=== PATIENT | male | born 1950 | race Two or more races ===

== ENCOUNTER 2025-08-08 06:48 | Outpatient (OUT) | payer MEDICARE, BC, SELFPAY ==
--- NOTE | 2025-08-08 | NM_ITS ---
Patient Name: KYLAH VELASQUEZ MR#: [id number] : 1950 Exam Date: 08/08/2025 Ordering Doctor: DR TK MAYERS . RADIOLOGY REPORT PROCEDURE: NM LILIA PERF SPECT REST STR COMPARISON: None. INDICATIONS: CHEST PAIN, SHORTNESS OF BREATH EXERTION TECHNIQUE: Exam Description: Stress/Rest one day protocol gated SPECT Rest Imagin.8 mCi Tc-99m Cardiolite IV on 08/08/2025 Stress Imaging 31.9 mCi Tc-99m Cardiolite IV on 08/08/2025 Exercise Protocol: Bennie Heart Rate (bpm): Rest: 51 Max: 133 PMHR: 91 Blood Pressure: Rest: 138/76 Max: 188/98 Exercise Time: Minutes: 4 Seconds: 57 Stage Reached: Stage: 2 Mets 7.0 Symptoms: Rest and peak stress ECG findings were pending and the exercise portion of the study was pending per attending physician [facility] . For more details please see separate cardiac stress test report. FINDINGS: Normal Perfusion study QUALITY OF STUDY: Good PERFUSION DEFECT: None LOCATION: SIZE: SEVERITY: TYPE: WALL MOTION: Normal LV SIZE: 79 mL. TID / TCD: 0.7 LVEF: Calculated EF 74%. SUMMARY: Normal Myocardial perfusion imaging study CONCLUSION: -No ischemia is noted in myocardial perfusion stress study. -Normal myocardial perfusion study. -Normal global left ventricular function -No transient ischemic dilatation. -ECG Stress will be reported separately Dictated by: Santana Zhao MD on 08/08/2025 at 18:51 Approved by: Santana Zhao MD on 08/08/2025 at 18:53
--- OUTSIDE RECORDS SUMMARY | 2025-08-08 06:53 | XMS_ITS | Encounter Summary ---
Author Organization [employer] Address [facility] [place]-[id number] [address] [place] [address] Care Team Providers Care Cutting Machine Offbearer Name Role Phone Jack Riley MD Primary Care Provider [phone] Encounter Details Date Type Department Care Team (Latest Contact Info) Description 08/04/2025 Travel Social History Tobacco Use Types Packs/Day Years Used Date Smoking Tobacco: Never Smokeless Tobacco: Never Alcohol Use Standard Drinks/Week Comments No 0 (1 standard drink = 0.6 oz pur e alcohol) AUDIT-C Answer Date Recorded Frequency of Alcohol Consumption Never 12/18/2018 Average Number of Drinks Not on file 019 Frequency of Binge Drinking Not on file 11/28 Childcare Answer Date Recorded Childcare Unknown 04/01/2019 Employment Answer Date Recorded Employment Unknown 04/01/2019 Purpose - Life Answer Date Recorded Purpose and direction in life Unknown Sex and Gender Information Value Date Recorded Sex Assigned at Not on file Legal Sex Male 11:33 AM EDT Gender Identity Not on file Sexual Orientation Not on file documented as of this encounter Plan of Treatment Upcoming Encounters Date Type Department Care Team (Late st Contact Info) Description 10/17/2025 3:00 PM EST Office Visit [facility] [address] [place] [address] [place] [address] Ganesh Reynoso MD [address] [place], [place] [id number] documented as of this encounter Visit Diagnoses Not on filedocumented in this encounter Care Teams Cutting Machine Offbearer Relationship Specialty Start Date End Date Jack Riley MD PCP - General 08/22/17 documented as of this encounter
--- OUTSIDE RECORDS SUMMARY | 2025-08-08 06:53 | XMS_ITS | Encounter Summary ---
Author Organization [employer] Address [facility] [place]-[id number] [address] [place] [address] Care Team Providers Care Black Top Spreader Machine Operator Name Role Phone Jack Riley MD Primary Care Provider [phone] Encounter Details Date Type Department Care Team (Late st Contact Info) Description 08/03/2025 Telephone [facility] [address] [place] [address] Kathryn Wilhelm, TEST CARRIER-GRADER GREEN MEAT [address] [place] [address] Social History Tobacco Use Types Packs/Day Years [...] on file documented as of this encounter Miscellaneous Notes * Telephone Encounter - Maria D Brizuela - 08/03/2025 9:21 AM EDT Called Amrit regarding the screening colonoscopy referral that our office received from Dr Riley, was unable to leave a message for him to call the office back to schedule an appointment as the mailbox is full. ALSO: 5 YEAR RECALL, LAST COLONOSCOPY 03/28/2021 documented in this encounter Plan of Treatment Upcoming Encounters Date Type Department Care Team (Late st Contact Info) Description 10/17/2025 3:00 PM EST Office Visit [facility] [address] [place] [address] [facility] [place] [address] Ganesh Reynoso MD [address] [place] [id number] documented as of this encounter Visit Diagnoses Not on filedocumented in this encounter Care Teams Black Top Spreader Machine Operator Relationship Specialty Start Date End Date Jack Riley MD PCP - General 08/22/17 documented as of this encounter
--- OUTSIDE RECORDS SUMMARY | 2025-08-08 06:53 | XMS_ITS | Clinical Summary ---
Author Organization [employer] [facility] Address [facility] [place]-[id number] [address] [place] [address] Care Team Providers Care Custom Leather Products Maker Name Role Phone Jack Riley MD Primary Care Provider [phone] Allergies No known active allergies Medications * This document contains information received from the source organization and may not represent a complete record from that organization. ibuprofen (ADVIL,MOTRIN) 800 mg tablet Take 800 mg by mouth every 6 (six) hours as needed for pain. Active Active Problems No known active problems Encounters Date Type Department Care Team Description 08/04/2025 Travel 08/03/2025 [facility] [address] [place] [phone] Kathryn Wilhelm, ELECTRIC MOTOR REBUILDER-CARBONATION TESTER from Last 3 Months Family History Medical History Relation Name Comments Diabetes Father Heart disease Father Diabetes Mother Relation Name Status Comments Brother Alive Daughter Alive Father Mother Sister Alive Son Alive Social History Tobacco Use Types Packs/Day Years [...] Recorded Purpose and direction in life Unknown 01 / Sex and Gender Information Value Date Recorded Sex Assigned at Not on file Legal Sex Male 11:33 AM EDT Gender Identity Not on file Sexual Orientation Not on file Last Filed Vital Signs Vital Sign Reading Time Taken Comments Blood Pressure 138/84 04/06/2021 8:45 AM EDT Pulse 55 12/30/2018 2:15 PM EST Temperature 36.2 C (97.1 F) 04/06/2021 8:45 AM EDT Respiratory Rate 16 12/30/2018 1:30 PM EST Oxygen Saturation 94% 12/30/2018 2:15 PM EST Inhaled Oxygen Concentration - - Weight 59.4 kg (131 lb) 04/06/2021 8:45 AM EDT Height 185.4 cm (6' 1 ) 04/06/2021 8:45 AM EDT Body Mass Index 17.28 04/06/2021 8:45 AM EDT Plan of Treatment Upcoming Encounters Date Type Department Care Team (Late st Contact Info) Description 10/17/2025 3:00 PM EST Office Visit [facility] [address] [place] [address] [place] [address] Ganesh Reynoso MD [address] [place] [address] Health Maintenance Due Date Last Done Comments Depression Screening 1963 Tobacco Screening 1963 Adult BMI Screening 1969 Zoster (Shingles) Vaccine (1 of 2) 2001 Fall Risk Screening 2016 COVID-19 Vaccine (2023-2 5 season) 2025 09/20/2024, 10/15/2023, 08/21/2022, Additional history exists Influenza Vaccine 06/27/2025 09/20/2024, , 08/21/2022, Additional history exists Colonoscopy 03/28/2026 03/28/2021 DTaP,Tdap and Td Vaccines (2 - Td or Tdap) 05/21/2031 05/21/2021 Medical Devices Implanted Type Area Fountain Operator Device Identifier Shelf Expiration Date Model / Serial / Lot Anch Sut 3.5mm Pshlk Rotr Cuf Ea=Bill-Only - Sna - [id number] Implanted:Qty: 1 on 12/30/2018 by Castro George DO at [facility] Mallory Right: Shoulder [employer] 01/25/2020 AR-1926PS / NA / [id number] Anch Sut 3.5mm Pshlk Rotr Cuf Ea=Bill-Only - Sna - [id number] Implanted:Qty: 1 on 12/30/2018 by Castro George DO at [facility] Right: Shoulder [employer] 01/25/2020 AR-1926PS / NA / [id number] Anch Sut 4.75mm 2 Regenesorb - Sna - [id number] Implanted:Qty: 1 on 12/30/2018 by Castro George DO at [facility] Right: Shoulder [employer] 09/23/2021 [id number] / NA / [id number] Anch Sut 5.5mm Multifix S Ult Rpl [id number] - Sna - [id number] Implanted:Qty: 1 on 12/30/2018 by Castro George DO at [facility] Right: Shoulder [employer] 08/31/2021 [id number] / NA / [id number] Anch Sut 5.5mm Multifix S Ult Rpl [id number] - Sna - [id number] Implanted:Qty: 1 on 12/30/2018 by Castro Goerge DO at [facility] Right: Shoulder [employer] 08/31/2021 [id number] / NA / [id number] Procedures Procedure Name Priority Date/Time Associated Diagnosis Comments TSH Routine 08/04/2025 6:58 AM EDT Other residential (current) drug therapy Encounter for screening for lipoid disorders Prediabetes Encounter for screening for malignant neoplasm of prostate PROSTATIC SPECIFIC ANTIGEN SCREEN Routine 08/04/2025 6:58 AM EDT Other residential (current) drug therapy Encounter for screening for lipoid disorders Prediabetes Encounter for screening for malignant neoplasm of prostate COMPREHENSIVE METABOLIC PANEL Routine 08/04/2025 6:58 AM EDT Other residential (current) drug therapy Encounter for screening for lipoid disorders Prediabetes Encounter for screening for malignant neoplasm of prostate HEMOGLOBIN A1C Routine 08/04/2025 6:58 AM EDT Other termination clerk (current) drug therapy Encounter for screening for lipoid disorders Prediabetes Encounter for screening for malignant neoplasm of prostate LIPID PROFILE Routine 08/04/2025 6:58 AM EDT Other residential (current) drug therapy Encounter for screening for lipoid disorders Prediabetes Encounter for screening for malignant neoplasm of prostate CBC WITH AUTO DIFFERENTIAL Routine 08/04/2025 6:58 AM EDT Other termination clerk (current) drug therapy Encounter for screening for lipoid disorders Prediabetes Encounter for screening for malignant neoplasm of prostate COLONOSCOPY Routine 03/28/2021 from Last 3 Months or Most Recently Relevant to Health Maintenance Results * CBC auto differential (08/04/2025 6:58 AM EDT) [facility] WBC 6.2 4 - 11 x10E9/L 08/04/2025 1:20 PM EDT [facility] RBC Count 4.39 4.1 - 5.7 X10E12/L 08/04/2025 1:20 PM EDT [facility] Hemoglobin 14.5 13 - 17 g/dL 08/04/2025 1:20 PM EDT [facility] Hematocrit 41.8 39 - 50 % 08/04/2025 1:20 PM EDT [facility] MCV 95 80 - 100 fL 08/04/2025 1:20 PM EDT [facility] MCH 32.9 27 - 34 pg 08/04/2025 1:20 PM EDT [facility] MCHC 34.6 32 - 36 g/dL 08/04/2025 1:20 PM EDT [facility] RDW 13.5 11.5 - 15 % 08/04/2025 1:20 PM EDT [facility] Platelet Count 233 150 - 450 X10E9/L 08/04/2025 1:20 PM EDT [facility] MPV 7.4 7 - 12 fL 08/04/2025 1:20 PM EDT [facility] Neutrophils % 52.3 % 08/04/2025 1:20 PM EDT [facility] Lymphocytes % 32.8 % 08/04/2025 1:20 PM EDT [facility] Monocytes % 7.8 % 08/04/2025 1:20 PM EDT [facility] Eosinophils % 6.2 % 08/04/2025 1:20 PM EDT [facility] Basophils % 0.9 % 08/04/2025 1:20 PM EDT [facility] Neutrophils Absolute (A) 3.3 1.5 - 6.6 10*3/uL 08/04/2025 1:20 PM EDT [facility] Lymphocytes Absolute 2.0 1.0 - 3.5 10*3/uL 08/04/2025 1:20 PM EDT [facility] Monocytes Absolute 0.5 0.0 - 0.9 10*3/uL 08/04/2025 1:20 PM EDT [facility] Eosinophils Absolute 0.4 0.0 - 0.4 10*3/uL 08/04/2025 1:20 PM EDT [facility] Basophils Absolute 0.1 0.0 - 0.2 10*3/uL 08/04/2025 1:20 PM EDT [facility] Differential Type AUTOMATED DIFFERENTIAL 08/04/2025 1:20 PM EDT [facility] Blood Venous blood / Unknown Venipuncture / Unknown 08/04/2025 6:58 AM EDT 08/04/2025 6:59 AM EDT us Jack Riley MD LAB BLOOD ORDERABLES Final Resul t [facility] [address] [place] [address], * (ABNORMAL) Prostatic specific antigen screen (08/04/2025 6:58 AM EDT) PROSTATIC SPEC ANT 7.05(H) 0.00 - 4.00 ng/mL 08/04/2025 1:55 PM EDT [facility] Comment: The method used for this test is Shey Hilosoft DXI chemiluminescent immunoassay. Values obtained by different assay methods cannot be used interchangeably. Blood Venous blood / Unknown Venipuncture / Unknown 08/04/2025 6:58 AM EDT 08/04/2025 6:59 AM EDT us Jack Riley MD LAB BLOOD ORDERABLES Final Resul t [facility] [address] [place] [address], * TSH (08/04/2025 6:58 AM EDT) TSH 3.00 0.49 - 4.67 uIU/mL 08/04/2025 1:48 PM EDT [facility] Blood Venous blood / Unknown Venipuncture / Unknown 08/04/2025 6:58 AM EDT 08/04/2025 6:59 AM EDT us Jack Riley MD LAB BLOOD ORDERABLES Final Resul t [facility] [address] [place] [address], * (ABNORMAL) Hemoglobin A1c (08/04/2025 6:58 AM EDT) HEMOGLOBIN A1C 5.9(H) 4.4 - 5.6 % 08/04/2025 2:32 PM EDT [facility] Comment: ADA Guidelines Result HgbA1c Normal : less than 5.7 % Prediabetes : 5.7 % to 6.4 % Diabetes : > 6.4 % Use with caution in patients with abnormal hemoglobin variants as the half-life of red blood cells and in vivo glycation rates are affected. EST. AVERAGE GLUCOSE 123 mg/dL 08/04/2025 2:32 PM EDT [facility] Blood Venous blood / Unknown Venipuncture / Unknown 08/04/2025 6:58 AM EDT 08/04/2025 6:59 AM EDT Jack Riley MD LAB BLOOD ORDERABLES Final Resul t [facility] [address] [place] [address], * Lipid profile (08/04/2025 6:58 AM EDT) CHOLESTEROL 160 150 - 200 mg/dL 08/04/2025 1:51 PM EDT [facility] TRIGLYCERIDE 142 27 - 150 mg/dL 08/04/2025 1:51 PM EDT [facility] HDL CHOLESTEROL 40 >39 mg/dL 1:51 PM EDT [facility] Comment: HDL <40 mg/dL - High Risk HDL > or = 40mg/dL- Desirable HDL >60 mg/dL - Negative Risk LDL (CALC) 92 <130 mg/dL 08/04/2025 1:51 PM EDT [facility] Comment: LDL <100 mg/dL - Desirable LDL >160 mg/dL - High Risk CHOLESTEROL:HDL 4.0 1.0 - 5.0 1:51 PM EDT [facility] VERY LOW LIPOPROTEIN 28 0 - 30 mg/dL 08/04/2025 1:51 PM EDT [facility] Blood Venous blood / Unknown Venipuncture / Unknown 08/04/2025 6:58 AM EDT 08/04/2025 6:59 AM EDT Jack Riely MD LAB BLOOD ORDERABLES Final Resul t [facility] [address] [place] [address], * (ABNORMAL) Comprehensive metabolic panel (08/04/2025 6:58 AM EDT) SODIUM 141 134 - 146 mmol/L 08/04/2025 1:51 PM EDT [facility] POTASSIUM 4.1 3.5 - 5.0 mmol/L 08/04/2025 1:51 PM EDT [facility] CHLORIDE 105 98 - 109 mmol/L 08/04/2025 1:51 PM EDT [facility] CARBON DIOXIDE 25 22 - 32 mmol/L 08/04/2025 1:51 PM EDT [facility] ANION GAP 11 5 - 15 mmol/L 08/04/2025 1:51 PM EDT [facility] BLOOD UREA NITROGEN 19 5 - 27 mg/dL 08/04/2025 1:51 PM EDT [facility] CREATININE 0.95 0.60 - 1.30 mg/dL 08/04/2025 1:51 PM EDT [facility] Comment:METHOD TRACEABLE TO IDMS STANDARD GLUCOSE 116(H) 65 - 99 mg/dL 08/04/2025 1:51 PM EDT [facility] CALCIUM 8.8 8.5 - 10.5 mg/dL 08/04/2025 1:51 PM EDT [facility] TOTAL PROTEIN 7.2 6.0 - 8.0 g/dL 08/04/2025 1:51 PM EDT [facility] ALBUMIN 4.1 3.2 - 5.3 g/dL 08/04/2025 1:51 PM EDT [facility] ALKALINE PHOSPHATASE 80 39 - 130 U/L 08/04/2025 1:51 PM EDT [facility] AST 13 <=41 U/L 08/04/2025 1:51 PM EDT [facility] ALT 11 <=40 U/L 08/04/2025 1:51 PM EDT [facility] BILIRUBIN,TOTAL 0.8 0.3 - 1.2 mg/dL 08/04/2025 1:51 PM EDT [facility] EGFR Non-Race Dependent 84 >=60 ml/min/1.7 3sq.m 08/04/2025 1:51 PM EDT [facility] Comment: Reported eGFR is based on the CKD-EPI 2020 equation that does not use a race coefficient. Blood Venous blood / Unknown Venipuncture / Unknown 08/04/2025 6:58 AM EDT 08/04/2025 6:59 AM EDT us Jack Riley MD LAB BLOOD ORDERABLES Final Resul t [facility] [address] [place] [address], [place] [phone] * Colonoscopy (03/28/2021) us Not In System Ref Prov GI PROCEDURE ORDERABLES F inal Result MANUALLY TRANSCRIBED RESULTS from Last 3 Months or Most Recently Relevant to Health Maintenance Insurance [facility] Care Teams Custom Leather Products Maker Relationship Specialty Start Date End Date Jack Riley MD PCP - General 08/22/17
--- OUTSIDE RECORDS SUMMARY | 2025-08-08 06:54 | XMS_ITS | Clinical Summary ---
Author Organization [facility] Address [address] [place] [address] Care Team Providers Care Boiler Blower Name Role Phone Jack Riley MD Primary Care Provider [phone] Social History Tobacco Use Types Packs/Day Years Used Date Smoking Tobacco: Never Assessed Sex and Gender Information Value Date Recorded Sex Assigned at Not on file Legal Sex Male 6:57 PM EDT Gender Identity Not on file Sexual Orientation Not on file Last Filed Vital Signs Vital Sign Reading Time Taken Comments Blood Pressure 139/81 12/15/2018 12:00 PM EST Pulse - - Temperature - - Respiratory Rate - - Oxygen Saturation - - Inhaled Oxygen Concentration - - Weight 111 kg (245 lb) 12/15/2018 12:00 PM EST Height 182.9 cm (6') 12/15/2018 12:00 PM EST Body Mass Index 33.23 12/15/2018 12:00 PM EST Plan of Treatment Not on file Insurance MEDICARE [facility] Care Teams Boiler Blower Relationship Specialty Start Date End Date Jack Riley MD PCP - General Family Medicine 05/13/23
--- NOTE | 2025-08-08 09:05 | PC.NURSE ---
Nursing Note Cardiac Stress Test Reviewed: Medication, allergies and patient history reviewed. Stress Test: [x ] Patient tolerated stress test well. [ ] Patient unable to tolerate walking on treadmill. Switched to Lexiscan stress test. [x ] No chest pain noted per patient [ ] Chest pain that resolved prior to leaving stress lab. [ ] No dyspnea noted. [x ] Dyspnea that resolved prior to leaving stress lab. [x ] Patient left stress lab asymptomatic and hemodynamically stable. [ ] Patient taken to the Emergency Room due to non-resolving symptoms following stress test. [x ] Patient achieved target heart rate. [ ] Patient unable to achieve target heart rate. [ ] Aminophylline administered as reversal agent to Lexiscan (Regadenoson). [ ] Nitro administered. Nursing Comments:
--- NOTE | 2025-08-10 08:51 | PM.STRESS ---
Stress Test Stress Test Requesting physician: Jack Riley Procedure: Nuclear exercise stress test General Information: Reason for Stress Test: chest pain and shortness of breath Cardiac History and Risk Factors: Male gender and remote smoking history Resting 12 - Lead Electrocardiogram: Sinus bradycardia 50 bpm, normal EKG Stress Test: Protocol: Bennie Exercise Capacity: 4:57 to 7 METs of activity Blood Pressure Response: Normal; BP increased from 138/76 to 188/98 Rhythm: Sinus throughout, no arrythmias noted ST - Response: Normal, no ST changes noted Patient Response: Shortness of breath without chest pain Interpretation: The stress EKG is normal at a moderate workload. The nuclear scans will be reported separately.
== END 2025-08-08 06:49 | disposition home or self-care (01) ==
LOC: NM 06:52
PROVIDERS: PCP Family Medicine; Visit Provider Family Medicine
DX: R07.9 Chest pain, unspecified (principal); R06.02 Shortness of breath
CPT/HCPCS: 78452; 93017; A9500